=== PATIENT | male | born 1975 | race Caucasian/White ===

== ENCOUNTER 2017-03-22 08:07 | Emergency (ER) | payer OTHER ==
[~2017-03-22] VITALS: Ht 177.8 cm; Wt 82.9 kg
[2017-03-22] MEDS ORDERED: SODIUM CHLORIDE FLUSH 10ML SYR IVF ONE (09:00)
[2017-03-22] MEDS ORDERED: SODIUM CHLORIDE 0.9% 1,000ML IVBOLUS ONE (09:00)
[2017-03-22] MEDS ORDERED: MORPHINE SULFATE 4 MG/ML, 1ML IVPush PRN (09:00)
[2017-03-22] MEDS ORDERED: KETOROLAC 30 MG/1 ML IVPush ONE (09:00)
[2017-03-22] MEDS ORDERED: ONDANSETRON 2MG/ML, 2ML IVPush ONE (09:00)
[2017-03-22 09:30] LABS: ASPARTATE AMINO TRANSFERASE 14 U/L (15-37); BLOOD UREA NITROGEN 17 mg/dL (7-18)
[2017-03-22] MEDS ORDERED: ONDANSETRON 2MG/ML, 2ML ONE (09:31)
[2017-03-22] MEDS ORDERED: KETOROLAC 30 MG/1 ML ONE (09:31)
[2017-03-22] MEDS ORDERED: MORPHINE SULFATE 4 MG/ML, 1ML ONE (09:32)
[2017-03-22 11:23] VITALS: BP 110/62
== END 2017-03-22 11:33 | disposition home or self-care (01) ==
LOC: ED 08:44
DX: R10.84 Generalized abdominal pain (principal)
CPT/HCPCS: 36415; 74020; 80053; 81003; 83605; 83690; 85025; 96361; 96374; 96375; 99285; J1885; J2405; J7030

== ENCOUNTER 2018-04-04 04:14 | Emergency (ER) | payer OTHER ==
[~2018-04-04] VITALS: Ht 177.8 cm; Wt 84.4 kg
[2018-04-04 04:15] VITALS: BP 124/84
[2018-04-04 04:54] LABS: BASOPHILS # (AUTO) 0.02 x10^3/uL (0-0.1); BASOPHILS % (AUTO) 0 % (0-1); EOSINOPHILS # (AUTO) 0.23 x10^3/uL (0-0.4); EOSINOPHILS % (AUTO) 2 % (1-7); LYMPHOCYTES # (AUTO) 1.25 x10^3/uL (1-3.4); LYMPHOCYTES % (AUTO) 9 % (22-44); MD NO; MEAN CORPUSCULAR HEMOGLOBIN 30.2 pg (27.5-34.5); MEAN CORPUSCULAR HGB CONC 33.6 g/dL (33.2-36.2); MEAN CORPUSCULAR VOLUME 89.9 fL (81-97); MEAN PLATELET VOLUME 7.4 fL (7.4-10.4); MONOCYTES % (AUTO) 6 % (2-9); NEUTROPHILS # (AUTO) 12.17 x10^3/uL (1.8-6.8); NEUTROPHILS % (AUTO) 84 % (42-75); PLATELET COUNT 350 x10^3/uL (130-400); RED BLOOD COUNT 4.64 x10^6/uL (4.38-5.82); RED CELL DISTRIBUTION WIDTH 12.6 % (9.4-14.8)
[2018-04-04] MEDS ORDERED: MAALOX/HYOSCYAMINE/LIDOCAINE 45 ML BTL PO ONE (05:00)
[2018-04-04] MEDS ORDERED: MAALOX/HYOSCYAMINE/LIDOCAINE 45 ML BTL ONE (05:03)
[2018-04-04 05:07] LABS: ALANINE AMINOTRANSFERASE 27 U/L (12-78); ALBUMIN 3.5 g/dL (3.4-5.0); ANION GAP 6 mmol/L (5-15); CALCIUM 7.8 mg/dL (8.5-10.1); CHLORIDE 109 mmol/L (98-107); CREATININE 1.01 mg/dL (0.7-1.3)
[2018-04-04 05:09] LABS: ALKALINE PHOSPHATASE 81 U/L (45-117); BILIRUBIN,TOTAL 0.4 mg/dL (0.2-1.0); TOTAL PROTEIN 6.4 g/dL (6.4-8.2)
== END 2018-04-04 05:50 | disposition home or self-care (01) ==
LOC: ED 05:45
DX: R10.13 Epigastric pain (principal); R63.0 Anorexia
CPT/HCPCS: 36415; 80053; 83690; 85025; 99284

== ENCOUNTER 2018-06-14 20:53 | Emergency (ER) | payer OTHER ==
[~2018-06-14] VITALS: Ht 177.8 cm; Wt 86.4 kg
[2018-06-14 20:54] VITALS: BP 134/89
[2018-06-14] MEDS ORDERED: KETOROLAC 30 MG/1 ML ONE ×2 (21:16→21:48)
[2018-06-14] MEDS ORDERED: KETOROLAC 30 MG/1 ML IM ONE (21:30)
== END 2018-06-14 22:15 | disposition home or self-care (01) ==
LOC: ED 21:06
DX: M75.91 Shoulder lesion, unspecified, right shoulder (principal); M75.31 Calcific tendinitis of right shoulder
CPT/HCPCS: 73030; 96372; 99284; J1885

== ENCOUNTER 2019-11-04 02:54 | Observation (INO) | payer BC, OTHER ==
[~2019-11-04] VITALS: Ht 177.8 cm; Wt 85.0 kg
[2019-11-04] MEDS ORDERED: ONDANSETRON 2MG/ML, 2ML ONE ×2 (03:23→14:33)
[2019-11-04] MEDS ORDERED: MORPHINE SULFATE 4 MG/ML, 1ML ONE ×2 (03:23→04:58)
[2019-11-04] MEDS ORDERED: ONDANSETRON 2MG/ML, 2ML IVPush ONE (03:30)
[2019-11-04] MEDS: MORPHINE SULFATE 4 MG/ML, 1ML IVPush PRN ×4 (03:32→12:08)
[2019-11-04 03:37] LABS: MEAN CORPUSCULAR HEMOGLOBIN 29.8 pg (27.5-34.5); MEAN CORPUSCULAR HGB CONC 33.5 g/dL (33.2-36.2); MEAN CORPUSCULAR VOLUME 88.9 fL (81-97); MEAN PLATELET VOLUME 7.6 fL (7.4-10.4); PLATELET COUNT 408 x10^3/uL (130-400); RED CELL DISTRIBUTION WIDTH 12.6 % (9.4-14.8)
--- NOTE | 2019-11-04 03:38 | NUR ---
UA OBTAINED AND TUBED TO LAB. PT MEDICATED PER DEC.
[2019-11-04 03:47] LABS: MICROSCOPIC NOT IND
[2019-11-04 03:47] LABS: ALANINE AMINOTRANSFERASE 23 U/L (12-78); ALBUMIN 4.2 g/dL (3.4-5.0); ANION GAP 8 mmol/L (5-15); CALCIUM 9.1 mg/dL (8.5-10.1); CHLORIDE 106 mmol/L (98-107); CREATININE 0.89 mg/dL (0.7-1.3)
[2019-11-04 03:49] LABS: ALKALINE PHOSPHATASE 89 U/L (45-117); BILIRUBIN,TOTAL 0.6 mg/dL (0.2-1.0); TOTAL PROTEIN 7.5 g/dL (6.4-8.2)
[2019-11-04 03:51] LABS: CULTURE INDICATED? NO
[2019-11-04] MEDS ORDERED: LIDOCAINE PF 2%, 5ML ONE (03:51)
[2019-11-04] MEDS ORDERED: KETOROLAC 30 MG/1 ML ONE (03:51)
[2019-11-04 03:55] LABS: BASOPHILS # (AUTO) 0.04 x10^3/uL (0-0.1); BASOPHILS % (AUTO) 0 % (0-1); EOSINOPHILS # (AUTO) 0.03 x10^3/uL (0-0.4); EOSINOPHILS % (AUTO) 0 % (1-7); LYMPHOCYTES # (AUTO) 0.85 x10^3/uL (1-3.4); LYMPHOCYTES % (AUTO) 4 % (22-44); MD SCAN; MONOCYTES # (AUTO) 0.59 x10^3/uL (0.2-0.8); MONOCYTES % (AUTO) 3 % (2-9); NEUTROPHILS # (AUTO) 17.95 x10^3/uL (1.8-6.8); NEUTROPHILS % (AUTO) 92 % (42-75)
[2019-11-04] MEDS ORDERED: OMNIPAQUE 350 MG/ML, 100ML BOTTLE ONE (04:49)
--- NOTE | 2019-11-04 05:03 | NUR ---
PT REQUESTING A HALF DOSE OF MORPHINE. PT MEDICATED WITH 2MG MORPHINE AT THIS TIME. PT AND SPOUSE DENY FURTHER NEEDS AT THIS TIME.
[2019-11-04] MEDS ORDERED: SERT50TA28 PO (05:28)
--- NOTE | 2019-11-04 05:28 | NUR ---
POC DISCUSSED. PT AND SPOUSE DENY CURRENT NEEDS.
[2019-11-04] MEDS ORDERED: SODIUM CHLORIDE 0.9% 1,000 ML IV ONE (05:33)
--- NOTE | 2019-11-04 05:36 | NUR ---
REQ FOR CEFOTETAN TUBED TO PHARM
[2019-11-04] MEDS ORDERED: ONDANSETRON 2MG/ML, 2ML IVPush PRN ×3 (06:00→15:00)
[2019-11-04] MEDS ORDERED: CEFOTETAN PMX 1GM/50ML 50 ML IV ONE (06:00)
[2019-11-04] MEDS ORDERED: MORPHINE SULFATE 4 MG/ML, 1ML IVPush PRN ×2 (06:00→15:00)
--- NOTE | 2019-11-04 06:02 | NUR ---
MAR UNABLE TO BE DOCUMENTED ON. IVF INFUSING AT TIME OF TRANSFER
[2019-11-04 08:45] VITALS: BP 132/77
[2019-11-04] MEDS: LACTATED RINGERS 1,000 ML IV SCH ×3 (10:14→22:55)
[2019-11-04] MEDS: PIPERACILLIN/TAZO/PMX 3.375GM 50 ML IV SCH ×3 (10:14→22:55)
[2019-11-04] MEDS ORDERED: MIDAZOLAM 1 MG/ML, 2ML ONE (13:03)
[2019-11-04] MEDS ORDERED: FENTANYL PF 250 MCG/5ML ONE (13:03)
[2019-11-04] MEDS ORDERED: BUPIVACAINE/PF 0.5% ONE (13:41)
[2019-11-04] MEDS ORDERED: BUPIVACAINE/PF 0.5% INFIL ONE (14:16)
[2019-11-04] MEDS ORDERED: HYDROmorphone 2 MG/ML, 1ML IVPush PRN (14:30)
[2019-11-04] MEDS ORDERED: ALBUTEROL/IPRATROPIUM 2.5MG/0.5MG, 3 ML NPPB PRN (14:30)
[2019-11-04] MEDS ORDERED: FENTANYL PF 100 MCG/2ML IV PRN (14:30)
[2019-11-04] MEDS ORDERED: MIDAZOLAM 1 MG/ML, 2ML IV PRN (14:30)
[2019-11-04] MEDS ORDERED: METOPROLOL 1 MG/ML, 5ML IV PRN (14:30)
[2019-11-04] MEDS ORDERED: DIAZEPAM 5 MG/ML, 2ML IVPush PRN (14:30)
[2019-11-04] MEDS ORDERED: PROMETHAZINE 25 MG/ML, 1ML IV PRN (14:30)
[2019-11-04] MEDS ORDERED: hydrALAzine 20 MG/ML, 1ML IV PRN (14:30)
[2019-11-04] MEDS ORDERED: OXYcodone 5 MG/5 ML ORAL.SOL UDC PO PRN (14:30)
[2019-11-04] MEDS ORDERED: ACETAMINOPHEN 325 MG TABLET PO PRN (14:30)
[2019-11-04] MEDS ORDERED: MEPERIDINE/PF 25MG/ML,1ML IVPush PRN (14:30)
[2019-11-04] MEDS ORDERED: SUCCINYLCHOLINE 20 MG/ML, 10ML ONE (14:33)
[2019-11-04] MEDS ORDERED: GLYCOPYRROLATE 0.2MG/1ML, 5ML ONE (14:33)
[2019-11-04] MEDS ORDERED: DEXAMETHASONE 4 MG/ML, 1ML ONE (14:33)
[2019-11-04] MEDS ORDERED: NEOSTIGMINE 1 MG/ML, 10ML ONE (14:33)
[2019-11-04] MEDS ORDERED: PROPOFOL 10 MG/ML, 20ML ONE (14:33)
[2019-11-04] MEDS ORDERED: ROCURONIUM 10MG/ML,5ML ONE (14:33)
[2019-11-04] MEDS ORDERED: KETOROLAC 30 MG/1 ML IV PRN (15:00)
[2019-11-04] MEDS ORDERED: ACETAMINOPHEN 650 MG/20.3 ML UDC PO PRN (15:00)
[2019-11-04] MEDS ORDERED: ENOXAPARIN 40 MG/0.4 ML SQ SCH (15:00)
[2019-11-04] MEDS ORDERED: DIPHENHYDRAMINE 25 MG CAPSULE PO PRN (15:00)
[2019-11-04] MEDS: POTASSIUM CHLORIDE 20 MEQ in D5%-0.45% NACL 1,000 ML IV SCH (15:52)
[2019-11-04] MEDS: HYDROcodone/APAP 5/325 TABLET PO PRN ×2 (15:52→21:22)
[2019-11-04] MEDS: CEFOTETAN PMX 1GM/50ML 50 ML IVPB SCH (17:25)
[2019-11-04 19:15] VITALS: BP 110/67
[2019-11-05 00:19] VITALS: BP 99/63
[2019-11-05] MEDS: POTASSIUM CHLORIDE 20 MEQ in D5%-0.45% NACL 1,000 ML IV SCH (04:05)
[2019-11-05] MEDS: HYDROcodone/APAP 5/325 TABLET PO PRN ×3 (04:06→12:00)
[2019-11-05] MEDS: CEFOTETAN PMX 1GM/50ML 50 ML IVPB SCH (04:07)
[2019-11-05 04:11] VITALS: BP 96/58
[2019-11-05] MEDS: PIPERACILLIN/TAZO/PMX 3.375GM 50 ML IV SCH ×2 (05:17→10:56)
[2019-11-05 05:38] LABS: MEAN CORPUSCULAR HEMOGLOBIN 29.6 pg (27.5-34.5); MEAN CORPUSCULAR HGB CONC 32.7 g/dL (33.2-36.2); MEAN CORPUSCULAR VOLUME 90.6 fL (81-97); PLATELET COUNT 322 x10^3/uL (130-400); RED CELL DISTRIBUTION WIDTH 12.6 % (9.4-14.8)
[2019-11-05 06:06] LABS: BASOPHILS # (AUTO) 0.05 x10^3/uL (0-0.1); BASOPHILS % (AUTO) 0 % (0-1); EOSINOPHILS # (AUTO) 0.01 x10^3/uL (0-0.4); EOSINOPHILS % (AUTO) 0 % (1-7); LYMPHOCYTES # (AUTO) 1.03 x10^3/uL (1-3.4); LYMPHOCYTES % (AUTO) 7 % (22-44); MD SCAN; MONOCYTES # (AUTO) 0.91 x10^3/uL (0.2-0.8); MONOCYTES % (AUTO) 6 % (2-9); NEUTROPHILS # (AUTO) 12.37 x10^3/uL (1.8-6.8); NEUTROPHILS % (AUTO) 86 % (42-75)
[2019-11-05 06:28] VITALS: BP 90/50
[2019-11-05] MEDS: LACTATED RINGERS 1,000 ML IV SCH (07:32)
[2019-11-05] MEDS ORDERED: HYDR-3240 PO (11:30)
[2019-11-05] MEDS ORDERED: ONDA4TAB13 PO (11:31)
[2019-11-05 11:38] VITALS: BP 103/59
[2019-11-06] MEDS ORDERED: SERTRALINE 50MG TABLET PO SCH (09:00)
== END 2019-11-05 12:28 | disposition home or self-care (01) ==
LOC: ED 05:28 → EDIP 06:05 → INTOOBSV 06:05 → 4NE 06:15 → DCLOUNGE 11-05 12:11
PROVIDERS: ADMIT Surgery; ATTEND Surgery
DX: K35.30 Acute appendicitis with localized peritonitis, without perforation or gangrene (principal); F32.9 Major depressive disorder, single episode, unspecified; Z87.891 Personal history of nicotine dependence; R11.10 Vomiting, unspecified
CPT/HCPCS: 36415; 44970; 74177; 76700; 80053; 81003; 83690; 85025; 88304; 93005; 96361; 96365; 96366; 96367; 96368; 96372; 96375; 96376; 99284; G0378; J0330; J1100; J1650; J1885; J2250; J2270; J2405; J2543; J2704; J2710; J3010; J3480; J3490; J7030; J7120; Q9967; S0020

== ENCOUNTER → 2020-08-09 | Outpatient (CLI) | payer BC, OTHER ==
[~2020-08-09] MED LIST: HYDR-3240 PO; ONDA4TAB13 PO; SERT50TA28 PO
== END | disposition home or self-care (01) ==
LOC: RAD 14:17
PROVIDERS: ATTEND Dermatology
DX: D86.3 Sarcoidosis of skin (principal)
CPT/HCPCS: 71046